=== PATIENT | female | born 1950 | race African-American/Black ===

== ENCOUNTER 2018-01-03 22:11 | Emergency (ER) | payer OTHER, MEDICARE ==
[~2018-01-03 22:11] MED LIST: Sodium Chloride Irrig Solution 250 ML BOT ONE; Sterile Water Irrigation 250 ML BOT ONE
--- NOTE | 2018-01-03 22:59 | CT ---
CT SCAN RIGHT KNEE: 01/03/18 Multiple axial tomograms obtained through the right knee including distal femur and proximal tibia an d fibula with multiplanar reconstruction. INDICATIONS: Trauma. There is no plain film correlate. There are degenerative changes at the knee. There is spurring from the femoral condyles as well as th e tibial condyles. Subchondral cystic changes are seen beneath the articular surface of the tibia. No evidence of joint effusion. No evidence of acute fracture identified. There appears to be bandage material over the patella and there is thickening of the subcutaneous at this site which could represent edema and injury. IMPRESSION: 1. Moderate degenerative changes of the knee. No acute fracture identified. 2. Evidence of soft tissue injury in the prepatellar soft tissues. POS: [facility]
[2018-01-03] MEDS ORDERED: Lidocaine 1% w/Epinephrine 1:100K 30 ML VIAL ONE (23:05)
[2018-01-03] MEDS ORDERED: Cephalexin 500 MG CAP ONE (23:56)
== END 2018-01-04 00:16 | disposition home or self-care (01) ==
LOC: MADERS 22:11
DX: S01.111A Laceration without foreign body of right eyelid and periocular area, initial encounter (principal); I10 Essential (primary) hypertension; E66.9 Obesity, unspecified; Z79.899 Other long term (current) drug therapy; W22.8XXA Striking against or struck by other objects, initial encounter
CPT/HCPCS: 12004; J2001

== ENCOUNTER 2018-04-07 05:38 | Emergency (ER) | payer OTHER, MEDICARE ==
[2018-04-07 07:04] LABS: #Eosinphils 0.1 thou/uL (0.0-0.7); #Lymphocytes 1.3 thou/uL (1.20-3.40); #Monocytes 0.4 thou/uL (0.11-0.59); #Neutrophils 6.1 thou/uL (1.40-6.50); %Basophils 0.4 % (0.0-1.0); %Eosinophils 1.2 % (0.0-10.0); %Lymphocytes 16.3 % (21.0-51.0); %Monocytes 5.2 % (0.0-10.0); %Neutrophils 76.9 % (42.0-75.0); Hemoglobin 13.1 g/dL (12.0-16.0); Mean Corpuscular HGB CONC 31.1 g/dL (32.0-36.0); Mean Corpuscular Hemoglobin 25.8 pg (27.0-31.0); Mean Platelet Volume 8.7 fL (7.4-10.4); Platelet Count 211 thou/uL (130-400); RBC Distribution Width 13.4 % (11.5-14.5); Red Blood Cell (RBC) Count 5.06 mill/uL (4.20-5.40)
[2018-04-07 07:10] LABS: PTT 26.6 SEC (22.9-36.1); Prothrombin Time 12.8 SEC (12.0-14.7)
[2018-04-07 07:20] LABS: ALT (SGPT) 13 U/L (8-55); AST (SGOT) 15 U/L (5-34); Alkaline Phosphatase 63 U/L (40-150); Anion Gap 12 mmol/L (10-20); BUN (Urea Nitrogen) 8 mg/dL (9.8-20.1); Bilirubin, Total 0.6 mg/dL (0.2-1.2); Calc. Creatinine Clearance 0 mL/min (70-130); Calcium 9.4 mg/dL (7.8-10.44); Carbon Dioxide 27 mmol/L (23-31); Chloride 107 mmol/L (98-107); Estimated GFR-MDRD Greater than 90; Globulin 3.7 g/dL (2.4-3.5); Glucose 112 mg/dL (80-115); Potassium 3.8 mmol/L (3.5-5.1); Protein, Total 7.7 g/dL (6.0-8.3); Sodium 142 mmol/L (136-145)
[2018-04-07 07:22] LABS: CKMB 2.3 ng/mL (0-6.6); Troponin I Less than 0.010 ng/mL (< 0.028)
[2018-04-07] MEDS ORDERED: Amlodipine 5 MG TAB ONE (07:47)
--- NOTE | 2018-04-07 08:07 | CT ---
CTA BRAIN: Date: 04/07/18 HISTORY: Left-sided weakness, which began yesterday. TECHNIQUE: Contrast enhanced CTA of carotid arteries and intracranial CTA performed. 2D and 3D reconstructed brit ges performed on an independent 3D workstation. FINDINGS: CTA images demonstrate images to be less than optimal due to patient motion and patient body habitus. The aortic arch is unremarkable. The common carotid arteries bilaterally are patent. There is some atherosclerotic plaque in the distal aspect of the left CCA extending into the left ext ernal carotid artery. The internal carotid arteries bilaterally are patent. Good flow is seen in the NICKO, MCA, as well as the right and left vertebral arteries. Normal flow is seen in the basilar artery , as well as the right and left posterior cerebral arteries. IMPRESSION: No significant evidence of carotid or intracranial vascular occlusion. POS: [facility]
--- NOTE | 2018-04-07 08:11 | CT ---
PRELIMINARY REPORT/[facility]/EMERGENTY AFTER-HOURS PROCEDURE CT Head Without Intravenous Contrast EXAM DATE/TIME: 04/07/2018 6:36 AM CLINICAL HISTORY: 67 years old, female; Signs and symptoms; Weakness, extremity; Left; Patient HX: Left side weakness t hat started yesterday; Additional info: See above TECHNIQUE: Axial computed tomography images of the head/brain without intravenous contrast. All CT scans at this facility use at least one of these dose optimization techniques: automated exposure control; mA and/ or kV adjustment per patient size (includes targeted exams where dose is matched to clinical indicati on); or iterative reconstruction. COMPARISON: No relevant prior studies available. FINDINGS: Brain: Prominent sulci. Patchy hypodensity of the cerebral white matter which are nonspecific but lik juana secondary to microangiopathic changes. Ventricles: The ventricles are prominent secondary to diffuse volume loss/atrophy. Bones/joints: Normal. No acute fracture. Sinuses: Mild mucoperiosteal thickening of the paranasal sinuses. Mastoid air cells: Normal as visualized. No mastoid effusion. Soft tissues: Normal. IMPRESSION: Chronic age related changes but no evidence of acute intracranial pathology. Thank you for allowing us to participate in the care of your patient. Dictated and Authenticated by: Jinny Lynch MD 04/07/2018 7:13 AM Central Time ([place] & [place]) FINAL REPORT EMERGENCY AFTER HOURS BRAIN CT WITHOUT IV CONTRAST: Date: 04/07/18 Time: 0637 hours FINDINGS/IMPRESSION: Mild age-related changes. No mass or bleed. Chronic white matter ischemic change. Report in agreement with preliminary report given on-call by David. POS: [facility]
[2018-04-07 08:24] LABS: Bilirubin Negative (Negative); Blood, Urine Negative (Negative); Clarity Clear (Clear); Glucose, Urine (Dipstick) Negative (Negative); Leukocyte Negative (Negative); Nitrite Negative (Negative); Protein, Urine (Dipstick) Negative (Neg-Trace); Specific Gravity, Urine 1.025 (1.002-1.036); Urobilinogen 0.2 mg/dL (0.2-1.0); pH, Urine 5.5 (5.0-9.0)
[2018-04-07] MEDS ORDERED: Iopamidol 370 76% 125 ML VIAL FS ONE (08:49)
== END 2018-04-07 08:22 | disposition short-term general hospital (02) ==
LOC: MADERS 05:38
DX: R53.1 Weakness (principal); I10 Essential (primary) hypertension; E66.9 Obesity, unspecified; Z79.899 Other long term (current) drug therapy; Z79.82 Long term (current) use of aspirin
CPT/HCPCS: 70450; 70496; 70498; 80053; 81003; 82553; 84484; 85025; 85610; 85730; 93005; 94760

== ENCOUNTER 2018-12-30 11:20 | Outpatient (CLI) | payer MEDICARE, MEDICAID ==
--- NOTE | 2018-12-30 11:54 | CT ---
CT Brain WO Con: 12/30/2018 11:32 AM CLINICAL HISTORY: Left leg weakness. COMPARISON: Brain MRI 04/07/2018 FINDINGS: Hemorrhage: None. Ventricular system: Normal in size and morphology for the patient's age. Cerebral parenchyma: Microvascular ischemic disease. Multifocal lacunar infarctions are present withi n the bilateral cerebral hemispheres, as well as involving the brainstem. Midline shift: None. Mass: No mass effect. Calvarium: Normal. Visualized Paranasal sinuses: Clear. IMPRESSION: No acute intracranial abnormalities. Chronic microvascular ischemic disease in cerebral white matter, with superimposed, multifocal lacuna r infarctions.
== END 2018-12-30 11:21 | disposition home or self-care (01) ==
LOC: MADCT 11:20
PROVIDERS: ATTEND Family Medicine
DX: R29.898 Other symptoms and signs involving the musculoskeletal system (principal); G93.89 Other specified disorders of brain; Z86.73 Personal history of transient ischemic attack (TIA), and cerebral infarction without residual deficits
CPT/HCPCS: 70450

== ENCOUNTER 2021-11-01 01:36 | Emergency (ER) | payer MEDICARE, MEDICAID ==
[2021-11-01] MEDS ORDERED: Acetaminophen 325 MG TAB ONE (02:53)
== END 2021-11-01 03:15 | disposition home or self-care (01) ==
LOC: MADERS 01:36
DX: M17.12 Unilateral primary osteoarthritis, left knee (principal); I10 Essential (primary) hypertension; Z79.899 Other long term (current) drug therapy

== ENCOUNTER 2021-11-06 14:10 | Inpatient (IN) | payer MEDICARE, OTHER ==
[2021-11-06] MEDS ORDERED: Polyethylene Glycol 3350 17 GM Packet PO PRN (17:35)
[2021-11-06] MEDS ORDERED: Acetaminophen/Codeine 30-300mg Tablet PO PRN (20:17)
[2021-11-06] MEDS: Cefdinir 300 MG CAP PO SCH (21:02)
[2021-11-06] MEDS: Acetaminophen 325 MG TAB PO PRN (21:02)
[2021-11-06] MEDS: Metoprolol Tartrate 25 MG TAB PO SCH (21:02)
[2021-11-06] MEDS: Ferrous Sulfate 325 MG TAB PO SCH (21:03)
[2021-11-06] MEDS: Apixaban 5 MG TAB PO SCH (21:07)
[2021-11-07] MEDS ORDERED: Loratadine 10 MG TAB PO PRN (09:00)
[2021-11-07] MEDS: Cefdinir 300 MG CAP PO SCH ×2 (10:09→20:38)
[2021-11-07] MEDS: Citalopram 20 MG TAB PO SCH (10:09)
[2021-11-07] MEDS: Vit A,C & E/Lutein/Minerals Tablet PO SCH (10:09)
[2021-11-07] MEDS: Aspirin 81 mg Enteric Coated Tablet PO SCH (10:09)
[2021-11-07] MEDS: Atorvastatin Calcium 40 MG TAB PO SCH (10:10)
[2021-11-07] MEDS: Ferrous Sulfate 325 MG TAB PO SCH ×2 (10:10→20:37)
[2021-11-07] MEDS: Furosemide 40 MG TAB PO SCH (10:10)
[2021-11-07] MEDS: Cholecalciferol 1,000 UNITS (25 MCG) TAB PO SCH (10:10)
[2021-11-07] MEDS: Apixaban 5 MG TAB PO SCH ×2 (10:10→20:37)
[2021-11-07] MEDS: Clopidogrel Bisulfate 75 MG TAB PO SCH (10:10)
[2021-11-07] MEDS: Valsartan 80 MG TAB PO SCH (10:10)
[2021-11-07] MEDS: Metoprolol Tartrate 25 MG TAB PO SCH ×2 (10:11→20:38)
[2021-11-07] MEDS: Mometasone/Formoterol 60 PUFF AER INH SCH ×2 (10:11→20:38)
[2021-11-07] MEDS: Acetaminophen 325 MG TAB PO PRN (20:36)
[2021-11-08 05:23] LABS: Hemoglobin 9.7 g/dL (12.0-16.0); Platelet Count 196 thou/uL (130-400)
[2021-11-08] MEDS: Mometasone/Formoterol 60 PUFF AER INH SCH ×2 (08:36→20:18)
[2021-11-08] MEDS: Citalopram 20 MG TAB PO SCH (08:37)
[2021-11-08] MEDS: Furosemide 40 MG TAB PO SCH (08:37)
[2021-11-08] MEDS: Atorvastatin Calcium 40 MG TAB PO SCH (08:37)
[2021-11-08] MEDS: Vit A,C & E/Lutein/Minerals Tablet PO SCH (08:37)
[2021-11-08] MEDS: Valsartan 80 MG TAB PO SCH (08:38)
[2021-11-08] MEDS: Ferrous Sulfate 325 MG TAB PO SCH ×2 (08:38→20:17)
[2021-11-08] MEDS: Apixaban 5 MG TAB PO SCH ×2 (08:38→20:16)
[2021-11-08] MEDS: Cholecalciferol 1,000 UNITS (25 MCG) TAB PO SCH (08:38)
[2021-11-08] MEDS: Aspirin 81 mg Enteric Coated Tablet PO SCH (08:38)
[2021-11-08] MEDS: Metoprolol Tartrate 25 MG TAB PO SCH ×2 (08:38→20:17)
[2021-11-08] MEDS: Clopidogrel Bisulfate 75 MG TAB PO SCH (08:38)
[2021-11-09] MEDS: Clopidogrel Bisulfate 75 MG TAB PO SCH (08:40)
[2021-11-09] MEDS: Ferrous Sulfate 325 MG TAB PO SCH ×2 (08:40→21:12)
[2021-11-09] MEDS: Furosemide 40 MG TAB PO SCH (08:40)
[2021-11-09] MEDS: Cholecalciferol 1,000 UNITS (25 MCG) TAB PO SCH (08:40)
[2021-11-09] MEDS: Apixaban 5 MG TAB PO SCH ×2 (08:40→21:12)
[2021-11-09] MEDS: Vit A,C & E/Lutein/Minerals Tablet PO SCH (08:40)
[2021-11-09] MEDS: Aspirin 81 mg Enteric Coated Tablet PO SCH (08:40)
[2021-11-09] MEDS: Citalopram 20 MG TAB PO SCH (08:40)
[2021-11-09] MEDS: Atorvastatin Calcium 40 MG TAB PO SCH (08:40)
[2021-11-09] MEDS: Valsartan 80 MG TAB PO SCH (08:41)
[2021-11-09] MEDS: Metoprolol Tartrate 25 MG TAB PO SCH ×2 (08:41→21:12)
[2021-11-09] MEDS: Mometasone/Formoterol 60 PUFF AER INH SCH ×2 (08:42→21:13)
[2021-11-09] MEDS: Acetaminophen 325 MG TAB PO PRN (18:23)
[2021-11-10] MEDS: Acetaminophen 325 MG TAB PO PRN ×2 (06:14→19:35)
[2021-11-10] MEDS: Mometasone/Formoterol 60 PUFF AER INH SCH ×2 (09:20→20:43)
[2021-11-10] MEDS: Vit A,C & E/Lutein/Minerals Tablet PO SCH (09:21)
[2021-11-10] MEDS: Aspirin 81 mg Enteric Coated Tablet PO SCH (09:21)
[2021-11-10] MEDS: Ferrous Sulfate 325 MG TAB PO SCH ×2 (09:21→20:42)
[2021-11-10] MEDS: Furosemide 40 MG TAB PO SCH (09:21)
[2021-11-10] MEDS: Metoprolol Tartrate 25 MG TAB PO SCH ×2 (09:22→20:42)
[2021-11-10] MEDS: Clopidogrel Bisulfate 75 MG TAB PO SCH (09:22)
[2021-11-10] MEDS: Apixaban 5 MG TAB PO SCH ×2 (09:22→20:42)
[2021-11-10] MEDS: Cholecalciferol 1,000 UNITS (25 MCG) TAB PO SCH (09:22)
[2021-11-10] MEDS: Citalopram 20 MG TAB PO SCH (09:22)
[2021-11-10] MEDS: Valsartan 80 MG TAB PO SCH (09:22)
[2021-11-10] MEDS: Atorvastatin Calcium 40 MG TAB PO SCH (09:22)
[2021-11-11] MEDS: Citalopram 20 MG TAB PO SCH (09:24)
[2021-11-11] MEDS: Furosemide 40 MG TAB PO SCH (09:24)
[2021-11-11] MEDS: Vit A,C & E/Lutein/Minerals Tablet PO SCH (09:24)
[2021-11-11] MEDS: Cholecalciferol 1,000 UNITS (25 MCG) TAB PO SCH (09:24)
[2021-11-11] MEDS: Valsartan 80 MG TAB PO SCH (09:24)
[2021-11-11] MEDS: Ferrous Sulfate 325 MG TAB PO SCH ×2 (09:25→21:54)
[2021-11-11] MEDS: Aspirin 81 mg Enteric Coated Tablet PO SCH (09:25)
[2021-11-11] MEDS: Atorvastatin Calcium 40 MG TAB PO SCH (09:25)
[2021-11-11] MEDS: Clopidogrel Bisulfate 75 MG TAB PO SCH (09:25)
[2021-11-11] MEDS: Metoprolol Tartrate 25 MG TAB PO SCH ×2 (09:25→21:54)
[2021-11-11] MEDS: Mometasone/Formoterol 60 PUFF AER INH SCH ×2 (09:26→21:59)
[2021-11-11] MEDS: Apixaban 5 MG TAB PO SCH ×2 (09:30→21:54)
[2021-11-11] MEDS: Acetaminophen 325 MG TAB PO PRN ×2 (09:31→21:54)
[2021-11-12] MEDS: Aspirin 81 mg Enteric Coated Tablet PO SCH (08:41)
[2021-11-12] MEDS: Atorvastatin Calcium 40 MG TAB PO SCH (08:41)
[2021-11-12] MEDS: Clopidogrel Bisulfate 75 MG TAB PO SCH (08:41)
[2021-11-12] MEDS: Apixaban 5 MG TAB PO SCH ×2 (08:42→21:18)
[2021-11-12] MEDS: Vit A,C & E/Lutein/Minerals Tablet PO SCH (08:42)
[2021-11-12] MEDS: Metoprolol Tartrate 25 MG TAB PO SCH ×2 (08:42→21:19)
[2021-11-12] MEDS: Valsartan 80 MG TAB PO SCH (08:42)
[2021-11-12] MEDS: Mometasone/Formoterol 60 PUFF AER INH SCH ×2 (08:43→21:19)
[2021-11-12] MEDS: Cholecalciferol 1,000 UNITS (25 MCG) TAB PO SCH (08:43)
[2021-11-12] MEDS: Citalopram 20 MG TAB PO SCH (08:43)
[2021-11-12] MEDS: Ferrous Sulfate 325 MG TAB PO SCH ×2 (08:43→21:18)
[2021-11-12] MEDS: Furosemide 40 MG TAB PO SCH (08:44)
[2021-11-12] MEDS: Acetaminophen 325 MG TAB PO PRN (11:37)
[2021-11-13 05:34] LABS: Anion Gap 14 mmol/L (10-20); BUN (Urea Nitrogen) 19 mg/dL (9.8-20.1); Calc. Creatinine Clearance 124 mL/min (70-130); Calcium 8.9 mg/dL (7.8-10.44); Carbon Dioxide 24 mmol/L (23-31); Chloride 109 mmol/L (98-107); Glucose 94 mg/dL (80-115); Potassium 4.6 mmol/L (3.5-5.1); Sodium 142 mmol/L (136-145)
[2021-11-13 05:37] LABS: #Eosinphils 0.2 thou/uL (0.0-0.7); #Lymphocytes 1.6 thou/uL (1.20-3.40); #Monocytes 0.5 thou/uL (0.11-0.59); #Neutrophils 3.8 thou/uL (1.40-6.50); %Basophils 0.5 % (0.0-1.0); %Eosinophils 3.7 % (0.0-10.0); %Lymphocytes 25.6 % (21.0-51.0); %Monocytes 8.3 % (0.0-10.0); %Neutrophils 61.9 % (42.0-75.0); Hemoglobin 8.8 g/dL (12.0-16.0); Hypochromia SLIGHT = 6-15 cells (100X) (0-5/hpf); MDiff Complete? YES; Mean Corpuscular HGB CONC 29.6 g/dL (32.0-36.0); Mean Corpuscular Hemoglobin 22.4 pg (27.0-31.0); Mean Corpuscular Volume 75.7 fL (78.0-98.0); Mean Platelet Volume 7.8 fL (7.4-10.4); Microcytosis SLIGHT = 6-15 cells (100X) (0-5/hpf); Platelet Count 194 thou/uL (130-400); RBC Distribution Width 18.7 % (11.5-14.5); Red Blood Cell (RBC) Count 3.91 mill/uL (4.20-5.40); Target Cells SLIGHT = 2-5 cells (100X) (0-1/hpf); White Blood Cell (WBC) Count 6.1 thou/uL (4.8-10.8)
[2021-11-13] MEDS: Furosemide 40 MG TAB PO SCH (08:24)
[2021-11-13] MEDS: Aspirin 81 mg Enteric Coated Tablet PO SCH (08:24)
[2021-11-13] MEDS: Vit A,C & E/Lutein/Minerals Tablet PO SCH (08:24)
[2021-11-13] MEDS: Valsartan 80 MG TAB PO SCH (08:24)
[2021-11-13] MEDS: Apixaban 5 MG TAB PO SCH ×2 (08:25→21:59)
[2021-11-13] MEDS: Metoprolol Tartrate 25 MG TAB PO SCH ×2 (08:25→21:59)
[2021-11-13] MEDS: Atorvastatin Calcium 40 MG TAB PO SCH (08:25)
[2021-11-13] MEDS: Acetaminophen 325 MG TAB PO PRN (08:25)
[2021-11-13] MEDS: Citalopram 20 MG TAB PO SCH (08:25)
[2021-11-13] MEDS: Ferrous Sulfate 325 MG TAB PO SCH ×2 (08:25→21:59)
[2021-11-13] MEDS: Clopidogrel Bisulfate 75 MG TAB PO SCH (08:25)
[2021-11-13] MEDS: Mometasone/Formoterol 60 PUFF AER INH SCH ×2 (08:31→21:59)
[2021-11-13] MEDS: Cholecalciferol 1,000 UNITS (25 MCG) TAB PO SCH (08:32)
[2021-11-14] MEDS: Aspirin 81 mg Enteric Coated Tablet PO SCH (08:29)
[2021-11-14] MEDS: Apixaban 5 MG TAB PO SCH ×2 (08:29→20:26)
[2021-11-14] MEDS: Ferrous Sulfate 325 MG TAB PO SCH ×2 (08:30→20:26)
[2021-11-14] MEDS: Furosemide 40 MG TAB PO SCH (08:30)
[2021-11-14] MEDS: Atorvastatin Calcium 40 MG TAB PO SCH (08:30)
[2021-11-14] MEDS: Citalopram 20 MG TAB PO SCH (08:30)
[2021-11-14] MEDS: Cholecalciferol 1,000 UNITS (25 MCG) TAB PO SCH (08:30)
[2021-11-14] MEDS: Vit A,C & E/Lutein/Minerals Tablet PO SCH (08:30)
[2021-11-14] MEDS: Metoprolol Tartrate 25 MG TAB PO SCH ×2 (08:31→20:26)
[2021-11-14] MEDS: Clopidogrel Bisulfate 75 MG TAB PO SCH (08:31)
[2021-11-14] MEDS: Mometasone/Formoterol 60 PUFF AER INH SCH ×2 (08:31→20:26)
[2021-11-14] MEDS: Acetaminophen 325 MG TAB PO PRN (08:32)
[2021-11-14] MEDS: Valsartan 80 MG TAB PO SCH (08:32)
[2021-11-15] MEDS: Mometasone/Formoterol 60 PUFF AER INH SCH ×2 (09:40→22:08)
[2021-11-15] MEDS: Vit A,C & E/Lutein/Minerals Tablet PO SCH (09:40)
[2021-11-15] MEDS: Apixaban 5 MG TAB PO SCH ×2 (09:41→22:07)
[2021-11-15] MEDS: Ferrous Sulfate 325 MG TAB PO SCH ×2 (09:41→22:07)
[2021-11-15] MEDS: Aspirin 81 mg Enteric Coated Tablet PO SCH (09:41)
[2021-11-15] MEDS: Cholecalciferol 1,000 UNITS (25 MCG) TAB PO SCH (09:42)
[2021-11-15] MEDS: Atorvastatin Calcium 40 MG TAB PO SCH (09:43)
[2021-11-15] MEDS: Citalopram 20 MG TAB PO SCH (09:43)
[2021-11-15] MEDS: Furosemide 40 MG TAB PO SCH (09:44)
[2021-11-15] MEDS: Valsartan 80 MG TAB PO SCH (09:44)
[2021-11-15] MEDS: Clopidogrel Bisulfate 75 MG TAB PO SCH (09:44)
[2021-11-15] MEDS: Metoprolol Tartrate 25 MG TAB PO SCH ×2 (09:44→22:07)
[2021-11-15] MEDS: Acetaminophen 325 MG TAB PO PRN ×2 (16:30→22:07)
[2021-11-16] MEDS: Acetaminophen 325 MG TAB PO PRN ×2 (08:57→21:10)
[2021-11-16] MEDS: Aspirin 81 mg Enteric Coated Tablet PO SCH (09:00)
[2021-11-16] MEDS: Apixaban 5 MG TAB PO SCH ×2 (09:00→21:05)
[2021-11-16] MEDS: Citalopram 20 MG TAB PO SCH (09:01)
[2021-11-16] MEDS: Cholecalciferol 1,000 UNITS (25 MCG) TAB PO SCH (09:01)
[2021-11-16] MEDS: Atorvastatin Calcium 40 MG TAB PO SCH (09:01)
[2021-11-16] MEDS: Clopidogrel Bisulfate 75 MG TAB PO SCH (09:02)
[2021-11-16] MEDS: Ferrous Sulfate 325 MG TAB PO SCH ×2 (09:02→21:04)
[2021-11-16] MEDS: Furosemide 40 MG TAB PO SCH (09:03)
[2021-11-16] MEDS: Mometasone/Formoterol 60 PUFF AER INH SCH ×2 (09:03→21:05)
[2021-11-16] MEDS: Metoprolol Tartrate 25 MG TAB PO SCH ×2 (09:04→21:04)
[2021-11-16] MEDS: Valsartan 80 MG TAB PO SCH (09:05)
[2021-11-16] MEDS: Vit A,C & E/Lutein/Minerals Tablet PO SCH (09:05)
[2021-11-17] MEDS: Vit A,C & E/Lutein/Minerals Tablet PO SCH (08:46)
[2021-11-17] MEDS: Acetaminophen 325 MG TAB PO PRN ×2 (08:46→18:32)
[2021-11-17] MEDS: Aspirin 81 mg Enteric Coated Tablet PO SCH (08:46)
[2021-11-17] MEDS: Citalopram 20 MG TAB PO SCH (08:47)
[2021-11-17] MEDS: Clopidogrel Bisulfate 75 MG TAB PO SCH (08:47)
[2021-11-17] MEDS: Atorvastatin Calcium 40 MG TAB PO SCH (08:47)
[2021-11-17] MEDS: Valsartan 80 MG TAB PO SCH (08:47)
[2021-11-17] MEDS: Cholecalciferol 1,000 UNITS (25 MCG) TAB PO SCH (08:48)
[2021-11-17] MEDS: Ferrous Sulfate 325 MG TAB PO SCH ×2 (08:48→21:58)
[2021-11-17] MEDS: Metoprolol Tartrate 25 MG TAB PO SCH ×2 (08:48→21:58)
[2021-11-17] MEDS: Furosemide 40 MG TAB PO SCH (08:48)
[2021-11-17] MEDS: Apixaban 5 MG TAB PO SCH ×2 (08:48→21:58)
[2021-11-17] MEDS: Mometasone/Formoterol 60 PUFF AER INH SCH ×2 (08:53→21:58)
[2021-11-18] MEDS: Furosemide 40 MG TAB PO SCH (08:33)
[2021-11-18] MEDS: Aspirin 81 mg Enteric Coated Tablet PO SCH (08:33)
[2021-11-18] MEDS: Apixaban 5 MG TAB PO SCH ×2 (08:33→20:43)
[2021-11-18] MEDS: Valsartan 80 MG TAB PO SCH (08:34)
[2021-11-18] MEDS: Cholecalciferol 1,000 UNITS (25 MCG) TAB PO SCH (08:34)
[2021-11-18] MEDS: Ferrous Sulfate 325 MG TAB PO SCH ×2 (08:34→20:44)
[2021-11-18] MEDS: Citalopram 20 MG TAB PO SCH (08:34)
[2021-11-18] MEDS: Metoprolol Tartrate 25 MG TAB PO SCH ×2 (08:34→20:43)
[2021-11-18] MEDS: Atorvastatin Calcium 40 MG TAB PO SCH (08:34)
[2021-11-18] MEDS: Vit A,C & E/Lutein/Minerals Tablet PO SCH (08:34)
[2021-11-18] MEDS: Clopidogrel Bisulfate 75 MG TAB PO SCH (08:34)
[2021-11-18] MEDS: Acetaminophen 325 MG TAB PO PRN ×2 (08:35→20:43)
[2021-11-18] MEDS: Mometasone/Formoterol 60 PUFF AER INH SCH ×2 (08:38→20:44)
[2021-11-19] MEDS: Valsartan 80 MG TAB PO SCH (07:22)
[2021-11-19] MEDS: Furosemide 40 MG TAB PO SCH (08:44)
[2021-11-19] MEDS: Citalopram 20 MG TAB PO SCH (08:45)
[2021-11-19] MEDS: Mometasone/Formoterol 60 PUFF AER INH SCH ×2 (08:45→20:57)
[2021-11-19] MEDS: Ferrous Sulfate 325 MG TAB PO SCH ×2 (08:46→20:59)
[2021-11-19] MEDS: Cholecalciferol 1,000 UNITS (25 MCG) TAB PO SCH (08:46)
[2021-11-19] MEDS: Clopidogrel Bisulfate 75 MG TAB PO SCH (08:46)
[2021-11-19] MEDS: Aspirin 81 mg Enteric Coated Tablet PO SCH (08:46)
[2021-11-19] MEDS: Vit A,C & E/Lutein/Minerals Tablet PO SCH (08:46)
[2021-11-19] MEDS: Apixaban 5 MG TAB PO SCH ×2 (08:46→20:59)
[2021-11-19] MEDS: Atorvastatin Calcium 40 MG TAB PO SCH (08:46)
[2021-11-19] MEDS: Metoprolol Tartrate 25 MG TAB PO SCH ×2 (08:46→20:59)
[2021-11-19] MEDS: Acetaminophen 325 MG TAB PO PRN (20:58)
[2021-11-20 05:27] LABS: #Eosinphils 0.2 thou/uL (0.0-0.7); #Lymphocytes 1.5 thou/uL (1.20-3.40); #Monocytes 0.7 thou/uL (0.11-0.59); #Neutrophils 5.4 thou/uL (1.40-6.50); %Basophils 0.5 % (0.0-1.0); %Lymphocytes 18.8 % (21.0-51.0); %Monocytes 8.9 % (0.0-10.0); %Neutrophils 68.7 % (42.0-75.0); Anion Gap 11 mmol/L (10-20); Anisocytosis SLIGHT = 6-15 cells (100X) (0-5/hpf); BUN (Urea Nitrogen) 25 mg/dL (9.8-20.1); Calc. Creatinine Clearance 102 mL/min (70-130); Calcium 9.1 mg/dL (7.8-10.44); Carbon Dioxide 29 mmol/L (23-31); Chloride 106 mmol/L (98-107); Glucose 100 mg/dL (80-115); Hemoglobin 9.3 g/dL (12.0-16.0); MDiff Complete? YES; Mean Corpuscular HGB CONC 30.7 g/dL (32.0-36.0); Mean Corpuscular Volume 74.9 fL (78.0-98.0); Mean Platelet Volume 9.1 fL (7.4-10.4); Platelet Count 181 thou/uL (130-400); Platelet Morphology Comment Appears Adequate; Potassium 4.1 mmol/L (3.5-5.1); RBC Distribution Width 18.5 % (11.5-14.5); Red Blood Cell (RBC) Count 4.06 mill/uL (4.20-5.40); Sodium 142 mmol/L (136-145); White Blood Cell (WBC) Count 7.8 thou/uL (4.8-10.8)
[2021-11-20] MEDS: Mometasone/Formoterol 60 PUFF AER INH SCH ×2 (08:35→22:04)
[2021-11-20] MEDS: Furosemide 40 MG TAB PO SCH (08:36)
[2021-11-20] MEDS: Cholecalciferol 1,000 UNITS (25 MCG) TAB PO SCH (08:36)
[2021-11-20] MEDS: Ferrous Sulfate 325 MG TAB PO SCH ×2 (08:36→22:04)
[2021-11-20] MEDS: Aspirin 81 mg Enteric Coated Tablet PO SCH (08:36)
[2021-11-20] MEDS: Clopidogrel Bisulfate 75 MG TAB PO SCH (08:36)
[2021-11-20] MEDS: Valsartan 80 MG TAB PO SCH (08:36)
[2021-11-20] MEDS: Citalopram 20 MG TAB PO SCH (08:36)
[2021-11-20] MEDS: Apixaban 5 MG TAB PO SCH ×2 (08:36→22:04)
[2021-11-20] MEDS: Vit A,C & E/Lutein/Minerals Tablet PO SCH (08:36)
[2021-11-20] MEDS: Metoprolol Tartrate 25 MG TAB PO SCH ×2 (08:36→22:04)
[2021-11-20] MEDS: Atorvastatin Calcium 40 MG TAB PO SCH (08:36)
[2021-11-20] MEDS: Acetaminophen 325 MG TAB PO PRN (22:04)
[2021-11-21] MEDS: Atorvastatin Calcium 40 MG TAB PO SCH (08:07)
[2021-11-21] MEDS: Cholecalciferol 1,000 UNITS (25 MCG) TAB PO SCH (08:07)
[2021-11-21] MEDS: Valsartan 80 MG TAB PO SCH (08:07)
[2021-11-21] MEDS: Furosemide 40 MG TAB PO SCH (08:07)
[2021-11-21] MEDS: Vit A,C & E/Lutein/Minerals Tablet PO SCH (08:07)
[2021-11-21] MEDS: Ferrous Sulfate 325 MG TAB PO SCH ×2 (08:08→20:48)
[2021-11-21] MEDS: Clopidogrel Bisulfate 75 MG TAB PO SCH (08:08)
[2021-11-21] MEDS: Aspirin 81 mg Enteric Coated Tablet PO SCH (08:08)
[2021-11-21] MEDS: Metoprolol Tartrate 25 MG TAB PO SCH ×2 (08:08→20:49)
[2021-11-21] MEDS: Citalopram 20 MG TAB PO SCH (08:08)
[2021-11-21] MEDS: Mometasone/Formoterol 60 PUFF AER INH SCH ×2 (08:09→20:56)
[2021-11-21] MEDS: Apixaban 5 MG TAB PO SCH ×2 (08:09→20:48)
[2021-11-21] MEDS: Acetaminophen 325 MG TAB PO PRN (20:49)
[2021-11-22] MEDS: Valsartan 80 MG TAB PO SCH (08:28)
[2021-11-22] MEDS: Acetaminophen 325 MG TAB PO PRN ×2 (08:28→20:35)
[2021-11-22] MEDS: Apixaban 5 MG TAB PO SCH ×2 (08:28→20:35)
[2021-11-22] MEDS: Metoprolol Tartrate 25 MG TAB PO SCH ×2 (08:29→20:35)
[2021-11-22] MEDS: Citalopram 20 MG TAB PO SCH (08:29)
[2021-11-22] MEDS: Aspirin 81 mg Enteric Coated Tablet PO SCH (08:29)
[2021-11-22] MEDS: Clopidogrel Bisulfate 75 MG TAB PO SCH (08:29)
[2021-11-22] MEDS: Vit A,C & E/Lutein/Minerals Tablet PO SCH (08:29)
[2021-11-22] MEDS: Furosemide 40 MG TAB PO SCH (08:29)
[2021-11-22] MEDS: Atorvastatin Calcium 40 MG TAB PO SCH (08:29)
[2021-11-22] MEDS: Cholecalciferol 1,000 UNITS (25 MCG) TAB PO SCH (08:29)
[2021-11-22] MEDS: Ferrous Sulfate 325 MG TAB PO SCH ×2 (08:30→20:35)
[2021-11-22] MEDS: Mometasone/Formoterol 60 PUFF AER INH SCH ×2 (08:30→20:37)
[2021-11-23] MEDS: Atorvastatin Calcium 40 MG TAB PO SCH (10:51)
[2021-11-23] MEDS: Citalopram 20 MG TAB PO SCH (10:51)
[2021-11-23] MEDS: Aspirin 81 mg Enteric Coated Tablet PO SCH (10:51)
[2021-11-23] MEDS: Apixaban 5 MG TAB PO SCH ×2 (10:51→20:37)
[2021-11-23] MEDS: Cholecalciferol 1,000 UNITS (25 MCG) TAB PO SCH (10:51)
[2021-11-23] MEDS: Ferrous Sulfate 325 MG TAB PO SCH ×2 (10:52→20:37)
[2021-11-23] MEDS: Clopidogrel Bisulfate 75 MG TAB PO SCH (10:52)
[2021-11-23] MEDS: Furosemide 40 MG TAB PO SCH (10:52)
[2021-11-23] MEDS: Metoprolol Tartrate 25 MG TAB PO SCH ×2 (10:53→20:40)
[2021-11-23] MEDS: Mometasone/Formoterol 60 PUFF AER INH SCH ×2 (10:53→20:38)
[2021-11-23] MEDS: Valsartan 80 MG TAB PO SCH (10:55)
[2021-11-23] MEDS: Vit A,C & E/Lutein/Minerals Tablet PO SCH (10:56)
[2021-11-23] MEDS: Acetaminophen 325 MG TAB PO PRN (20:35)
[2021-11-24] MEDS: Apixaban 5 MG TAB PO SCH ×2 (09:33→21:09)
[2021-11-24] MEDS: Aspirin 81 mg Enteric Coated Tablet PO SCH (09:33)
[2021-11-24] MEDS: Furosemide 40 MG TAB PO SCH (09:34)
[2021-11-24] MEDS: Cholecalciferol 1,000 UNITS (25 MCG) TAB PO SCH (09:34)
[2021-11-24] MEDS: Clopidogrel Bisulfate 75 MG TAB PO SCH (09:34)
[2021-11-24] MEDS: Valsartan 80 MG TAB PO SCH (09:34)
[2021-11-24] MEDS: Citalopram 20 MG TAB PO SCH (09:34)
[2021-11-24] MEDS: Vit A,C & E/Lutein/Minerals Tablet PO SCH (09:34)
[2021-11-24] MEDS: Atorvastatin Calcium 40 MG TAB PO SCH (09:34)
[2021-11-24] MEDS: Ferrous Sulfate 325 MG TAB PO SCH ×2 (09:34→21:09)
[2021-11-24] MEDS: Mometasone/Formoterol 60 PUFF AER INH SCH ×2 (09:35→21:10)
[2021-11-24] MEDS: Metoprolol Tartrate 25 MG TAB PO SCH ×2 (09:35→21:09)
[2021-11-24] MEDS: Acetaminophen 325 MG TAB PO PRN (21:09)
[2021-11-25] MEDS: Atorvastatin Calcium 40 MG TAB PO SCH (09:04)
[2021-11-25] MEDS: Cholecalciferol 1,000 UNITS (25 MCG) TAB PO SCH (09:04)
[2021-11-25] MEDS: Clopidogrel Bisulfate 75 MG TAB PO SCH (09:04)
[2021-11-25] MEDS: Apixaban 5 MG TAB PO SCH ×2 (09:04→20:44)
[2021-11-25] MEDS: Aspirin 81 mg Enteric Coated Tablet PO SCH (09:04)
[2021-11-25] MEDS: Citalopram 20 MG TAB PO SCH (09:04)
[2021-11-25] MEDS: Ferrous Sulfate 325 MG TAB PO SCH ×2 (09:05→20:44)
[2021-11-25] MEDS: Vit A,C & E/Lutein/Minerals Tablet PO SCH (09:05)
[2021-11-25] MEDS: Mometasone/Formoterol 60 PUFF AER INH SCH ×2 (09:05→20:50)
[2021-11-25] MEDS: Valsartan 80 MG TAB PO SCH (09:05)
[2021-11-25] MEDS: Metoprolol Tartrate 25 MG TAB PO SCH ×2 (09:05→20:44)
[2021-11-25] MEDS: Furosemide 40 MG TAB PO SCH (09:05)
[2021-11-25] MEDS: Acetaminophen 325 MG TAB PO PRN (20:45)
[2021-11-26 05:26] LABS: Hemoglobin 8.7 g/dL (12.0-16.0); Platelet Count 174 thou/uL (130-400)
[2021-11-26] MEDS: Mometasone/Formoterol 60 PUFF AER INH SCH ×2 (08:57→21:06)
[2021-11-26] MEDS: Cholecalciferol 1,000 UNITS (25 MCG) TAB PO SCH (08:59)
[2021-11-26] MEDS: Apixaban 5 MG TAB PO SCH ×2 (08:59→21:06)
[2021-11-26] MEDS: Aspirin 81 mg Enteric Coated Tablet PO SCH (08:59)
[2021-11-26] MEDS: Atorvastatin Calcium 40 MG TAB PO SCH (08:59)
[2021-11-26] MEDS: Vit A,C & E/Lutein/Minerals Tablet PO SCH (09:00)
[2021-11-26] MEDS: Ferrous Sulfate 325 MG TAB PO SCH ×2 (09:00→21:05)
[2021-11-26] MEDS: Clopidogrel Bisulfate 75 MG TAB PO SCH (09:00)
[2021-11-26] MEDS: Valsartan 80 MG TAB PO SCH (09:00)
[2021-11-26] MEDS: Citalopram 20 MG TAB PO SCH (09:00)
[2021-11-26] MEDS: Metoprolol Tartrate 25 MG TAB PO SCH ×2 (09:00→21:05)
[2021-11-26] MEDS: Furosemide 40 MG TAB PO SCH (09:00)
[2021-11-26] MEDS: Acetaminophen 325 MG TAB PO PRN ×3 (09:01→23:48)
[2021-11-26 22:49] LABS: Bilirubin Negative (Negative); Blood, Urine Large (Negative); Clarity Clear (Clear); Glucose, Urine (Dipstick) Negative (Negative); Ketone, Urine Negative (Negative); Leukocyte Negative (Negative); Nitrite Negative (Negative); Protein, Urine (Dipstick) Negative (Neg-Trace); Specific Gravity, Urine 1.015 (1.005-1.030); Urobilinogen 0.2 mg/dL (Less than 2); pH, Urine 5.5 (5.0-9.0)
[2021-11-26 22:57] LABS: Urine Culture Reflex No No
[2021-11-26 22:58] LABS: Bacteria/HPF None Seen HPF (None Seen); RBC/HPF 0-3 HPF (0-3); Squamous Epithelial 0-3 HPF (0-3); WBC/HPF 0-3 HPF (0-3)
[2021-11-27 05:29] LABS: #Eosinphils 0.3 thou/uL (0.0-0.7); #Lymphocytes 1.6 thou/uL (1.20-3.40); #Monocytes 0.5 thou/uL (0.11-0.59); #Neutrophils 4.1 thou/uL (1.40-6.50); %Basophils 0.6 % (0.0-1.0); %Eosinophils 3.9 % (0.0-10.0); %Lymphocytes 24.2 % (21.0-51.0); %Monocytes 8.2 % (0.0-10.0); %Neutrophils 63.2 % (42.0-75.0); Hemoglobin 8.7 g/dL (12.0-16.0); Hypochromia MODERATE=16-30 cells (100X) (0-5/hpf); MDiff Complete? YES; Mean Corpuscular HGB CONC 30.9 g/dL (32.0-36.0); Mean Corpuscular Volume 74.4 fL (78.0-98.0); Mean Platelet Volume 9.3 fL (7.4-10.4); Microcytosis MODERATE=15-30 cells (100X) (0-5/hpf); Platelet Count 170 thou/uL (130-400); RBC Distribution Width 18.1 % (11.5-14.5); Target Cells SLIGHT = 2-5 cells (100X) (0-1/hpf); White Blood Cell (WBC) Count 6.5 thou/uL (4.8-10.8)
[2021-11-27] MEDS: Mometasone/Formoterol 60 PUFF AER INH SCH ×2 (09:10→21:01)
[2021-11-27] MEDS: Metoprolol Tartrate 25 MG TAB PO SCH ×2 (09:11→21:02)
[2021-11-27] MEDS: Ferrous Sulfate 325 MG TAB PO SCH ×2 (09:11→21:02)
[2021-11-27] MEDS: Vit A,C & E/Lutein/Minerals Tablet PO SCH (09:11)
[2021-11-27] MEDS: Citalopram 20 MG TAB PO SCH (09:11)
[2021-11-27] MEDS: Furosemide 40 MG TAB PO SCH (09:11)
[2021-11-27] MEDS: Atorvastatin Calcium 40 MG TAB PO SCH (09:11)
[2021-11-27] MEDS: Aspirin 81 mg Enteric Coated Tablet PO SCH (09:11)
[2021-11-27] MEDS: Cholecalciferol 1,000 UNITS (25 MCG) TAB PO SCH (09:11)
[2021-11-27] MEDS: Clopidogrel Bisulfate 75 MG TAB PO SCH (09:11)
[2021-11-27] MEDS: Valsartan 80 MG TAB PO SCH (09:11)
[2021-11-27] MEDS: Acetaminophen 325 MG TAB PO PRN ×2 (09:16→17:44)
[2021-11-27] MEDS ORDERED: methylPREDNISolone 4 mg Tablet PO SCH ×2 (18:00→21:00)
[2021-11-27] MEDS ORDERED: CONFIRM ALL DAY 1 DOSES ARE TIMED FOR DAY 1 FS SCH (18:15)
[2021-11-28 05:50] LABS: #Lymphocytes 1.2 thou/uL (1.20-3.40); #Monocytes 0.3 thou/uL (0.11-0.59); #Neutrophils 6.1 thou/uL (1.40-6.50); %Basophils 0.3 % (0.0-1.0); %Eosinophils 0.2 % (0.0-10.0); %Lymphocytes 15.4 % (21.0-51.0); %Monocytes 3.9 % (0.0-10.0); %Neutrophils 80.2 % (42.0-75.0); Hemoglobin 9.4 g/dL (12.0-16.0); Hypochromia SLIGHT = 6-15 cells (100X) (0-5/hpf); MDiff Complete? YES; Mean Corpuscular HGB CONC 30.9 g/dL (32.0-36.0); Mean Corpuscular Volume 74.3 fL (78.0-98.0); Mean Platelet Volume 8.7 fL (7.4-10.4); Microcytosis SLIGHT = 6-15 cells (100X) (0-5/hpf); Platelet Count 190 thou/uL (130-400); Polychromasia SLIGHT = 2-3 cells (100X) (0-2/hpf); Red Blood Cell (RBC) Count 4.11 mill/uL (4.20-5.40); Target Cells SLIGHT = 2-5 cells (100X) (0-1/hpf); White Blood Cell (WBC) Count 7.6 thou/uL (4.8-10.8)
[2021-11-28] MEDS: Acetaminophen 325 MG TAB PO PRN ×3 (08:39→20:18)
[2021-11-28] MEDS: Ferrous Sulfate 325 MG TAB PO SCH ×2 (08:40→20:20)
[2021-11-28] MEDS: Vit A,C & E/Lutein/Minerals Tablet PO SCH (08:40)
[2021-11-28] MEDS: Atorvastatin Calcium 40 MG TAB PO SCH (08:40)
[2021-11-28] MEDS: Metoprolol Tartrate 25 MG TAB PO SCH ×2 (08:40→20:18)
[2021-11-28] MEDS: Valsartan 80 MG TAB PO SCH (08:40)
[2021-11-28] MEDS: Citalopram 20 MG TAB PO SCH (08:41)
[2021-11-28] MEDS: methylPREDNISolone 4 mg Tablet PO SCH ×3 (08:41→17:16)
[2021-11-28] MEDS: Cholecalciferol 1,000 UNITS (25 MCG) TAB PO SCH (08:41)
[2021-11-28] MEDS: Clopidogrel Bisulfate 75 MG TAB PO SCH (08:41)
[2021-11-28] MEDS: Aspirin 81 mg Enteric Coated Tablet PO SCH (08:41)
[2021-11-28] MEDS: Mometasone/Formoterol 60 PUFF AER INH SCH ×2 (08:42→20:27)
[2021-11-28] MEDS: Furosemide 40 MG TAB PO SCH (08:43)
[2021-11-28] MEDS ORDERED: methylPREDNISolone 4 mg Tablet PO SCH (21:00)
[2021-11-29] MEDS: Citalopram 20 MG TAB PO SCH (08:36)
[2021-11-29] MEDS: Furosemide 40 MG TAB PO SCH (08:36)
[2021-11-29] MEDS: Clopidogrel Bisulfate 75 MG TAB PO SCH (08:36)
[2021-11-29] MEDS: Valsartan 80 MG TAB PO SCH (08:36)
[2021-11-29] MEDS: Ferrous Sulfate 325 MG TAB PO SCH ×2 (08:36→20:35)
[2021-11-29] MEDS: Acetaminophen 325 MG TAB PO PRN ×2 (08:37→20:35)
[2021-11-29] MEDS: methylPREDNISolone 4 mg Tablet PO SCH ×4 (08:37→20:35)
[2021-11-29] MEDS: Metoprolol Tartrate 25 MG TAB PO SCH ×2 (08:37→20:35)
[2021-11-29] MEDS: Vit A,C & E/Lutein/Minerals Tablet PO SCH (08:37)
[2021-11-29] MEDS: Atorvastatin Calcium 40 MG TAB PO SCH (08:37)
[2021-11-29] MEDS: Cholecalciferol 1,000 UNITS (25 MCG) TAB PO SCH (08:37)
[2021-11-29] MEDS: Aspirin 81 mg Enteric Coated Tablet PO SCH (08:38)
[2021-11-29] MEDS: Mometasone/Formoterol 60 PUFF AER INH SCH ×2 (08:41→20:36)
[2021-11-30] MEDS: Mometasone/Formoterol 60 PUFF AER INH SCH ×2 (08:34→21:38)
[2021-11-30] MEDS: Citalopram 20 MG TAB PO SCH (08:35)
[2021-11-30] MEDS: Vit A,C & E/Lutein/Minerals Tablet PO SCH (08:35)
[2021-11-30] MEDS: Valsartan 80 MG TAB PO SCH (08:35)
[2021-11-30] MEDS: Furosemide 40 MG TAB PO SCH (08:35)
[2021-11-30] MEDS: Ferrous Sulfate 325 MG TAB PO SCH ×2 (08:36→21:38)
[2021-11-30] MEDS: Aspirin 81 mg Enteric Coated Tablet PO SCH (08:36)
[2021-11-30] MEDS: Clopidogrel Bisulfate 75 MG TAB PO SCH (08:36)
[2021-11-30] MEDS: Acetaminophen 325 MG TAB PO PRN ×2 (08:36→21:38)
[2021-11-30] MEDS: methylPREDNISolone 4 mg Tablet PO SCH ×3 (08:36→17:11)
[2021-11-30] MEDS: Cholecalciferol 1,000 UNITS (25 MCG) TAB PO SCH (08:36)
[2021-11-30] MEDS: Atorvastatin Calcium 40 MG TAB PO SCH (08:36)
[2021-11-30] MEDS: Metoprolol Tartrate 25 MG TAB PO SCH ×2 (08:36→21:38)
[2021-12-01] MEDS: methylPREDNISolone 4 mg Tablet PO SCH ×2 (08:36→17:10)
[2021-12-01] MEDS: Atorvastatin Calcium 40 MG TAB PO SCH (08:36)
[2021-12-01] MEDS: Cholecalciferol 1,000 UNITS (25 MCG) TAB PO SCH (08:36)
[2021-12-01] MEDS: Metoprolol Tartrate 25 MG TAB PO SCH ×2 (08:36→21:58)
[2021-12-01] MEDS: Vit A,C & E/Lutein/Minerals Tablet PO SCH (08:36)
[2021-12-01] MEDS: Clopidogrel Bisulfate 75 MG TAB PO SCH (08:36)
[2021-12-01] MEDS: Aspirin 81 mg Enteric Coated Tablet PO SCH (08:36)
[2021-12-01] MEDS: Citalopram 20 MG TAB PO SCH (08:36)
[2021-12-01] MEDS: Ferrous Sulfate 325 MG TAB PO SCH ×2 (08:36→21:58)
[2021-12-01] MEDS: Mometasone/Formoterol 60 PUFF AER INH SCH ×2 (08:37→22:01)
[2021-12-01] MEDS: Valsartan 80 MG TAB PO SCH (08:37)
[2021-12-01] MEDS: Furosemide 40 MG TAB PO SCH (08:37)
[2021-12-01] MEDS: Acetaminophen 325 MG TAB PO PRN ×2 (12:12→21:58)
[2021-12-02] MEDS ORDERED: methylPREDNISolone 4 mg Tablet PO SCH (08:00)
[2021-12-02] MEDS: Aspirin 81 mg Enteric Coated Tablet PO SCH (08:59)
[2021-12-02] MEDS: Cholecalciferol 1,000 UNITS (25 MCG) TAB PO SCH (08:59)
[2021-12-02] MEDS: Citalopram 20 MG TAB PO SCH (08:59)
[2021-12-02] MEDS: Apixaban 5 MG TAB PO SCH ×2 (08:59→20:29)
[2021-12-02] MEDS: Ferrous Sulfate 325 MG TAB PO SCH ×2 (08:59→20:28)
[2021-12-02] MEDS: Metoprolol Tartrate 25 MG TAB PO SCH ×2 (08:59→20:29)
[2021-12-02] MEDS: Acetaminophen 325 MG TAB PO PRN ×2 (08:59→20:29)
[2021-12-02] MEDS: Valsartan 80 MG TAB PO SCH (08:59)
[2021-12-02] MEDS: Clopidogrel Bisulfate 75 MG TAB PO SCH (09:00)
[2021-12-02] MEDS: Furosemide 40 MG TAB PO SCH (09:00)
[2021-12-02] MEDS: Mometasone/Formoterol 60 PUFF AER INH SCH ×2 (09:00→20:30)
[2021-12-02] MEDS: Atorvastatin Calcium 40 MG TAB PO SCH (09:00)
[2021-12-02] MEDS: Vit A,C & E/Lutein/Minerals Tablet PO SCH (09:00)
[2021-12-03 05:28] LABS: Hemoglobin 9.6 g/dL (12.0-16.0); Platelet Count 198 thou/uL (130-400)
[2021-12-03] MEDS: Aspirin 81 mg Enteric Coated Tablet PO SCH (08:37)
[2021-12-03] MEDS: Vit A,C & E/Lutein/Minerals Tablet PO SCH (08:37)
[2021-12-03] MEDS: Atorvastatin Calcium 40 MG TAB PO SCH (08:37)
[2021-12-03] MEDS: Valsartan 80 MG TAB PO SCH (08:37)
[2021-12-03] MEDS: Clopidogrel Bisulfate 75 MG TAB PO SCH (08:37)
[2021-12-03] MEDS: Ferrous Sulfate 325 MG TAB PO SCH ×2 (08:37→22:04)
[2021-12-03] MEDS: Mometasone/Formoterol 60 PUFF AER INH SCH ×2 (08:37→22:07)
[2021-12-03] MEDS: Furosemide 40 MG TAB PO SCH (08:37)
[2021-12-03] MEDS: Citalopram 20 MG TAB PO SCH (08:37)
[2021-12-03] MEDS: Apixaban 5 MG TAB PO SCH ×2 (08:37→22:07)
[2021-12-03] MEDS: Cholecalciferol 1,000 UNITS (25 MCG) TAB PO SCH (08:37)
[2021-12-03] MEDS: Metoprolol Tartrate 25 MG TAB PO SCH ×2 (08:38→22:04)
[2021-12-03] MEDS: Acetaminophen 325 MG TAB PO PRN ×2 (14:18→22:04)
[2021-12-04] MEDS: Acetaminophen 325 MG TAB PO PRN ×3 (03:32→21:14)
[2021-12-04] MEDS: Ferrous Sulfate 325 MG TAB PO SCH ×2 (08:22→21:10)
[2021-12-04] MEDS: Atorvastatin Calcium 40 MG TAB PO SCH (08:22)
[2021-12-04] MEDS: Apixaban 5 MG TAB PO SCH ×2 (08:23→21:10)
[2021-12-04] MEDS: Valsartan 80 MG TAB PO SCH (08:23)
[2021-12-04] MEDS: Furosemide 40 MG TAB PO SCH (08:23)
[2021-12-04] MEDS: Citalopram 20 MG TAB PO SCH (08:23)
[2021-12-04] MEDS: Cholecalciferol 1,000 UNITS (25 MCG) TAB PO SCH (08:23)
[2021-12-04] MEDS: Metoprolol Tartrate 25 MG TAB PO SCH ×2 (08:23→21:10)
[2021-12-04] MEDS: Clopidogrel Bisulfate 75 MG TAB PO SCH (08:23)
[2021-12-04] MEDS: Aspirin 81 mg Enteric Coated Tablet PO SCH (08:23)
[2021-12-04] MEDS: Vit A,C & E/Lutein/Minerals Tablet PO SCH (08:23)
[2021-12-04] MEDS: Mometasone/Formoterol 60 PUFF AER INH SCH ×2 (08:24→21:18)
[2021-12-05] MEDS: Mometasone/Formoterol 60 PUFF AER INH SCH ×2 (08:40→20:59)
[2021-12-05] MEDS: Apixaban 5 MG TAB PO SCH ×2 (08:42→20:59)
[2021-12-05] MEDS: Aspirin 81 mg Enteric Coated Tablet PO SCH (08:42)
[2021-12-05] MEDS: Atorvastatin Calcium 40 MG TAB PO SCH (08:43)
[2021-12-05] MEDS: Clopidogrel Bisulfate 75 MG TAB PO SCH (08:43)
[2021-12-05] MEDS: Citalopram 20 MG TAB PO SCH (08:43)
[2021-12-05] MEDS: Cholecalciferol 1,000 UNITS (25 MCG) TAB PO SCH (08:43)
[2021-12-05] MEDS: Ferrous Sulfate 325 MG TAB PO SCH ×2 (08:44→20:59)
[2021-12-05] MEDS: Furosemide 40 MG TAB PO SCH (08:44)
[2021-12-05] MEDS: Metoprolol Tartrate 25 MG TAB PO SCH ×2 (08:45→20:59)
[2021-12-05] MEDS: Valsartan 80 MG TAB PO SCH (08:45)
[2021-12-05] MEDS: Vit A,C & E/Lutein/Minerals Tablet PO SCH (08:45)
[2021-12-05] MEDS: Acetaminophen 325 MG TAB PO PRN (20:59)
[2021-12-06] MEDS: Cholecalciferol 1,000 UNITS (25 MCG) TAB PO SCH (08:59)
[2021-12-06] MEDS: Atorvastatin Calcium 40 MG TAB PO SCH (08:59)
[2021-12-06] MEDS: Ferrous Sulfate 325 MG TAB PO SCH ×2 (08:59→20:45)
[2021-12-06] MEDS: Apixaban 5 MG TAB PO SCH ×2 (08:59→20:45)
[2021-12-06] MEDS: Aspirin 81 mg Enteric Coated Tablet PO SCH (08:59)
[2021-12-06] MEDS: Vit A,C & E/Lutein/Minerals Tablet PO SCH (08:59)
[2021-12-06] MEDS: Clopidogrel Bisulfate 75 MG TAB PO SCH (08:59)
[2021-12-06] MEDS: Metoprolol Tartrate 25 MG TAB PO SCH ×2 (08:59→20:45)
[2021-12-06] MEDS: Furosemide 40 MG TAB PO SCH (09:00)
[2021-12-06] MEDS: Valsartan 80 MG TAB PO SCH (09:00)
[2021-12-06] MEDS: Citalopram 20 MG TAB PO SCH (09:00)
[2021-12-06] MEDS: Mometasone/Formoterol 60 PUFF AER INH SCH ×2 (09:00→20:45)
[2021-12-06] MEDS: Acetaminophen 325 MG TAB PO PRN (20:43)
[2021-12-07] MEDS: Mometasone/Formoterol 60 PUFF AER INH SCH ×2 (08:32→20:31)
[2021-12-07] MEDS: Vit A,C & E/Lutein/Minerals Tablet PO SCH (08:33)
[2021-12-07] MEDS: Ferrous Sulfate 325 MG TAB PO SCH ×2 (08:33→20:31)
[2021-12-07] MEDS: Citalopram 20 MG TAB PO SCH (08:33)
[2021-12-07] MEDS: Atorvastatin Calcium 40 MG TAB PO SCH (08:33)
[2021-12-07] MEDS: Metoprolol Tartrate 25 MG TAB PO SCH ×2 (08:33→20:31)
[2021-12-07] MEDS: Furosemide 40 MG TAB PO SCH (08:33)
[2021-12-07] MEDS: Aspirin 81 mg Enteric Coated Tablet PO SCH (08:33)
[2021-12-07] MEDS: Clopidogrel Bisulfate 75 MG TAB PO SCH (08:33)
[2021-12-07] MEDS: Apixaban 5 MG TAB PO SCH ×2 (08:33→20:31)
[2021-12-07] MEDS: Cholecalciferol 1,000 UNITS (25 MCG) TAB PO SCH (08:33)
[2021-12-07] MEDS: Valsartan 80 MG TAB PO SCH (08:33)
[2021-12-07] MEDS: Acetaminophen 325 MG TAB PO PRN ×3 (08:34→20:33)
[2021-12-08] MEDS: Aspirin 81 mg Enteric Coated Tablet PO SCH (08:42)
[2021-12-08] MEDS: Apixaban 5 MG TAB PO SCH ×2 (08:42→20:27)
[2021-12-08] MEDS: Clopidogrel Bisulfate 75 MG TAB PO SCH (08:42)
[2021-12-08] MEDS: Furosemide 40 MG TAB PO SCH (08:42)
[2021-12-08] MEDS: Citalopram 20 MG TAB PO SCH (08:42)
[2021-12-08] MEDS: Valsartan 80 MG TAB PO SCH (08:42)
[2021-12-08] MEDS: Mometasone/Formoterol 60 PUFF AER INH SCH ×2 (08:43→20:26)
[2021-12-08] MEDS: Cholecalciferol 1,000 UNITS (25 MCG) TAB PO SCH (08:43)
[2021-12-08] MEDS: Atorvastatin Calcium 40 MG TAB PO SCH (08:43)
[2021-12-08] MEDS: Vit A,C & E/Lutein/Minerals Tablet PO SCH (08:43)
[2021-12-08] MEDS: Ferrous Sulfate 325 MG TAB PO SCH ×2 (08:43→20:28)
[2021-12-08] MEDS: Metoprolol Tartrate 25 MG TAB PO SCH ×2 (08:43→20:28)
[2021-12-08] MEDS: Acetaminophen 325 MG TAB PO PRN ×2 (08:49→20:32)
[2021-12-09] MEDS: Clopidogrel Bisulfate 75 MG TAB PO SCH (09:07)
[2021-12-09] MEDS: Furosemide 40 MG TAB PO SCH (09:07)
[2021-12-09] MEDS: Citalopram 20 MG TAB PO SCH (09:07)
[2021-12-09] MEDS: Metoprolol Tartrate 25 MG TAB PO SCH ×2 (09:07→21:39)
[2021-12-09] MEDS: Cholecalciferol 1,000 UNITS (25 MCG) TAB PO SCH (09:07)
[2021-12-09] MEDS: Mometasone/Formoterol 60 PUFF AER INH SCH ×2 (09:07→21:40)
[2021-12-09] MEDS: Vit A,C & E/Lutein/Minerals Tablet PO SCH (09:07)
[2021-12-09] MEDS: Ferrous Sulfate 325 MG TAB PO SCH ×2 (09:07→21:39)
[2021-12-09] MEDS: Aspirin 81 mg Enteric Coated Tablet PO SCH (09:07)
[2021-12-09] MEDS: Atorvastatin Calcium 40 MG TAB PO SCH (09:07)
[2021-12-09] MEDS: Valsartan 80 MG TAB PO SCH (09:08)
[2021-12-09] MEDS: Apixaban 5 MG TAB PO SCH ×2 (09:08→21:39)
[2021-12-09] MEDS: Acetaminophen 325 MG TAB PO PRN ×2 (12:20→21:39)
[2021-12-10 05:10] LABS: Hemoglobin 8.8 g/dL (12.0-16.0); Platelet Count 175 thou/uL (130-400)
[2021-12-10] MEDS: Mometasone/Formoterol 60 PUFF AER INH SCH ×2 (08:50→21:24)
[2021-12-10] MEDS: Vit A,C & E/Lutein/Minerals Tablet PO SCH (08:51)
[2021-12-10] MEDS: Cholecalciferol 1,000 UNITS (25 MCG) TAB PO SCH (08:51)
[2021-12-10] MEDS: Metoprolol Tartrate 25 MG TAB PO SCH (08:51)
[2021-12-10] MEDS: Atorvastatin Calcium 40 MG TAB PO SCH (08:51)
[2021-12-10] MEDS: Citalopram 20 MG TAB PO SCH (08:51)
[2021-12-10] MEDS: Furosemide 40 MG TAB PO SCH (08:51)
[2021-12-10] MEDS: Aspirin 81 mg Enteric Coated Tablet PO SCH (08:51)
[2021-12-10] MEDS: Ferrous Sulfate 325 MG TAB PO SCH ×2 (08:51→21:23)
[2021-12-10] MEDS: Clopidogrel Bisulfate 75 MG TAB PO SCH (08:51)
[2021-12-10] MEDS: Apixaban 5 MG TAB PO SCH ×2 (08:51→21:23)
[2021-12-10] MEDS: Valsartan 80 MG TAB PO SCH (08:51)
[2021-12-10 12:56] VITALS: BMI 47.4
[2021-12-10] MEDS: Acetaminophen 325 MG TAB PO PRN (21:23)
[2021-12-11] MEDS: Metoprolol Tartrate 25 MG TAB PO SCH ×3 (04:20→21:10)
[2021-12-11] MEDS: Clopidogrel Bisulfate 75 MG TAB PO SCH (08:33)
[2021-12-11] MEDS: Cholecalciferol 1,000 UNITS (25 MCG) TAB PO SCH (08:33)
[2021-12-11] MEDS: Ferrous Sulfate 325 MG TAB PO SCH ×2 (08:33→21:11)
[2021-12-11] MEDS: Valsartan 80 MG TAB PO SCH (08:33)
[2021-12-11] MEDS: Vit A,C & E/Lutein/Minerals Tablet PO SCH (08:33)
[2021-12-11] MEDS: Apixaban 5 MG TAB PO SCH ×2 (08:33→21:10)
[2021-12-11] MEDS: Citalopram 20 MG TAB PO SCH (08:33)
[2021-12-11] MEDS: Atorvastatin Calcium 40 MG TAB PO SCH (08:33)
[2021-12-11] MEDS: Acetaminophen 325 MG TAB PO PRN ×2 (08:34→21:11)
[2021-12-11] MEDS: Aspirin 81 mg Enteric Coated Tablet PO SCH (08:34)
[2021-12-11] MEDS: Furosemide 40 MG TAB PO SCH (08:34)
[2021-12-11] MEDS: Mometasone/Formoterol 60 PUFF AER INH SCH ×2 (08:36→21:09)
[2021-12-12] MEDS: Citalopram 20 MG TAB PO SCH (08:33)
[2021-12-12] MEDS: Apixaban 5 MG TAB PO SCH ×2 (08:33→20:46)
[2021-12-12] MEDS: Vit A,C & E/Lutein/Minerals Tablet PO SCH (08:33)
[2021-12-12] MEDS: Atorvastatin Calcium 40 MG TAB PO SCH (08:33)
[2021-12-12] MEDS: Cholecalciferol 1,000 UNITS (25 MCG) TAB PO SCH (08:33)
[2021-12-12] MEDS: Clopidogrel Bisulfate 75 MG TAB PO SCH (08:33)
[2021-12-12] MEDS: Valsartan 80 MG TAB PO SCH (08:33)
[2021-12-12] MEDS: Aspirin 81 mg Enteric Coated Tablet PO SCH (08:33)
[2021-12-12] MEDS: Ferrous Sulfate 325 MG TAB PO SCH ×2 (08:33→20:47)
[2021-12-12] MEDS: Acetaminophen 325 MG TAB PO PRN ×2 (08:33→20:47)
[2021-12-12] MEDS: Metoprolol Tartrate 25 MG TAB PO SCH ×2 (08:33→20:46)
[2021-12-12] MEDS: Furosemide 40 MG TAB PO SCH (08:33)
[2021-12-12] MEDS: Mometasone/Formoterol 60 PUFF AER INH SCH ×2 (08:34→20:44)
[2021-12-13] MEDS: Aspirin 81 mg Enteric Coated Tablet PO SCH (09:34)
[2021-12-13] MEDS: Citalopram 20 MG TAB PO SCH (09:34)
[2021-12-13] MEDS: Ferrous Sulfate 325 MG TAB PO SCH ×2 (09:34→20:34)
[2021-12-13] MEDS: Valsartan 80 MG TAB PO SCH (09:34)
[2021-12-13] MEDS: Apixaban 5 MG TAB PO SCH ×2 (09:34→20:34)
[2021-12-13] MEDS: Furosemide 40 MG TAB PO SCH (09:34)
[2021-12-13] MEDS: Vit A,C & E/Lutein/Minerals Tablet PO SCH (09:34)
[2021-12-13] MEDS: Acetaminophen 325 MG TAB PO PRN ×2 (09:35→20:33)
[2021-12-13] MEDS: Atorvastatin Calcium 40 MG TAB PO SCH (09:35)
[2021-12-13] MEDS: Cholecalciferol 1,000 UNITS (25 MCG) TAB PO SCH (09:35)
[2021-12-13] MEDS: Metoprolol Tartrate 25 MG TAB PO SCH ×2 (09:35→20:39)
[2021-12-13] MEDS: Clopidogrel Bisulfate 75 MG TAB PO SCH (09:35)
[2021-12-13] MEDS: Mometasone/Formoterol 60 PUFF AER INH SCH ×2 (09:35→20:35)
[2021-12-14 07:23] VITALS: BP 100/63; TEMP 98
[2021-12-14] MEDS: Apixaban 5 MG TAB PO SCH (08:27)
[2021-12-14] MEDS: Ferrous Sulfate 325 MG TAB PO SCH (08:27)
[2021-12-14] MEDS: Aspirin 81 mg Enteric Coated Tablet PO SCH (08:27)
[2021-12-14] MEDS: Atorvastatin Calcium 40 MG TAB PO SCH (08:27)
[2021-12-14] MEDS: Clopidogrel Bisulfate 75 MG TAB PO SCH (08:27)
[2021-12-14] MEDS: Acetaminophen 325 MG TAB PO PRN (08:27)
[2021-12-14] MEDS: Cholecalciferol 1,000 UNITS (25 MCG) TAB PO SCH (08:28)
[2021-12-14] MEDS: Citalopram 20 MG TAB PO SCH (08:28)
[2021-12-14] MEDS: Furosemide 40 MG TAB PO SCH (08:29)
[2021-12-14] MEDS: Mometasone/Formoterol 60 PUFF AER INH SCH (08:30)
[2021-12-14] MEDS: Metoprolol Tartrate 25 MG TAB PO SCH (08:30)
[2021-12-14] MEDS: Valsartan 80 MG TAB PO SCH (08:31)
[2021-12-14] MEDS: Vit A,C & E/Lutein/Minerals Tablet PO SCH (08:31)
== END 2021-12-14 11:30 | disposition home or self-care (01) | DRG 57 ==
LOC: MADMS 14:10
PROVIDERS: ADMIT Family Medicine; ATTEND Family Medicine
DX: I69.951 Hemiplegia and hemiparesis following unspecified cerebrovascular disease affecting right dominant side (principal); I69.354 Hemiplegia and hemiparesis following cerebral infarction affecting left non-dominant side; I50.32 Chronic diastolic (congestive) heart failure; N39.0 Urinary tract infection, site not specified; Z68.42 Body mass index [BMI] 45.0-49.9, adult; R53.81 Other malaise; F32.A Depression, unspecified; I48.0 Paroxysmal atrial fibrillation; E66.01 Morbid (severe) obesity due to excess calories; G47.33 Obstructive sleep apnea (adult) (pediatric); I27.20 Pulmonary hypertension, unspecified; M16.12 Unilateral primary osteoarthritis, left hip; R26.89 Other abnormalities of gait and mobility; D64.9 Anemia, unspecified; M17.12 Unilateral primary osteoarthritis, left knee; Z20.822 Contact with and (suspected) exposure to COVID-19; I11.0 Hypertensive heart disease with heart failure; R26.9 Unspecified abnormalities of gait and mobility; R31.9 Hematuria, unspecified; Z79.01 Long term (current) use of anticoagulants; Z79.899 Other long term (current) drug therapy; Z79.82 Long term (current) use of aspirin; Z98.51 Tubal ligation status; Z90.710 Acquired absence of both cervix and uterus; I69.398 Other sequelae of cerebral infarction
CPT/HCPCS: 36415; 80048; 81001; 82565; 85014; 85018; 85025; 85049; 94664; J7509; U0003; U0005

== ENCOUNTER 2022-10-28 12:44 | Emergency (ER) | payer OTHER, MEDICAID ==
[2022-10-28] MEDS ORDERED: Boostrix 0.5 ML (Tdap) VIAL (>/=7 yrs of age) ONE (14:27)
== END 2022-10-28 14:46 | disposition home or self-care (01) ==
LOC: MADERS 12:44
DX: S00.83XA Contusion of other part of head, initial encounter (principal); I11.0 Hypertensive heart disease with heart failure; I50.9 Heart failure, unspecified; Z23 Encounter for immunization; W01.10XA Fall on same level from slipping, tripping and stumbling with subsequent striking against unspecified object, initial encounter
CPT/HCPCS: 70450; 72125; 90471; 90715

== ENCOUNTER 2023-08-17 13:19 | Emergency (ER) | payer OTHER, MEDICAID ==
[2023-08-17 14:04] LABS: #Eosinphils 0.2 thou/uL (0.0-0.7); #Lymphocytes 1.3 thou/uL (1.20-3.40); #Monocytes 0.5 thou/uL (0.11-0.59); #Neutrophils 5.1 thou/uL (1.40-6.50); %Basophils 0.4 % (0.0-1.0); %Eosinophils 3.5 % (0.0-10.0); %Lymphocytes 17.5 % (21.0-51.0); %Monocytes 6.8 % (0.0-10.0); %Neutrophils 71.9 % (42.0-75.0); Anisocytosis MODERATE=16-30 cells (100X) (0-5/hpf); Hematocrit 25.6 % (36.0-47.0); Hemoglobin 7.5 g/dL (12.0-16.0); Hypochromia MODERATE=16-30 cells (100X) (0-5/hpf); MDiff Complete? YES; Mean Corpuscular HGB CONC 29.1 g/dL (32.0-36.0); Mean Corpuscular Hemoglobin 18.5 pg (27.0-31.0); Mean Corpuscular Volume 63.7 fl (78.0-98.0); Mean Platelet Volume 8.3 fL (7.4-10.4); Microcytosis SLIGHT = 6-15 cells (100X) (0-5/hpf); Platelet Adequacy Comment Appears Adequate; Platelet Count 247 10x3/uL (130-400); Red Blood Cell (RBC) Count 4.02 mill/uL (4.20-5.40); Reflex for Review?? NO; Target Cells SLIGHT = 2-5 cells (100X) (0-1/hpf); White Blood Cell (WBC) Count 7.1 10x3/uL (4.8-10.8)
== END 2023-08-17 14:28 | disposition home or self-care (01) ==
LOC: MADERS 13:19
DX: D64.9 Anemia, unspecified (principal); I10 Essential (primary) hypertension; Z79.82 Long term (current) use of aspirin; Z79.899 Other long term (current) drug therapy
CPT/HCPCS: 36415; 85025; 99284